=== PATIENT | male | born 1995 | race Caucasian/White ===

== ENCOUNTER 2017-05-27 09:29 | Emergency (ER) | payer MEDICAID ==
[~2017-05-27] VITALS: Ht 170.2 cm; Wt 82.0 kg
[2017-05-27 09:31] VITALS: BP 130/73
== END 2017-05-27 10:42 | disposition left against medical advice (07) ==
LOC: ER 09:41
DX: R07.89 Other chest pain (principal); G43.909 Migraine, unspecified, not intractable, without status migrainosus
CPT/HCPCS: 93005; 99283; Z7610